=== PATIENT | male | born 1965 | race American Indian/Alaskan Native ===

== ENCOUNTER 2017-05-06 19:54 | Emergency (ER) | payer OTHER ==
[2017-05-06] MEDS ORDERED: ZOFRAN IV ONE (20:05)
[2017-05-06] MEDS ORDERED: MORPHINE IV ONE (20:05)
[2017-05-06 20:15] LABS: Basophils # (Auto) 0.1 K/mm3 (0.0-0.1); Basophils % (Auto) 1.1 % (0.0-1.8); Eosinophils # (Auto) 0.1 K/mm3 (0.0-0.4); Hematocrit 41.1 % (35.5-45.6); Hemoglobin 13.7 gm/dl (11.8-15.2); Lymphocytes # (Auto) 2.4 K/mm3 (1.2-5.4); Lymphocytes % (Auto) 31.5 % (13.4-35.0); Mean Corpuscular HGB Conc 33 % (32-34); Mean Corpuscular Hemoglobin 30 pg (28-32); Mean Corpuscular Volume 89 fl (84-94); Monocytes % (Auto) 13.3 % (0.0-7.3); Platelet Count 216 K/mm3 (140-440); Red Blood Count 4.61 M/mm3 (3.65-5.03); Red Cell Distribution Width 14.1 % (13.2-15.2)
--- NOTE | 2017-05-06 20:16 | Emergency Department Report ---
ED General Adult HPI - General Chief complaint: Fall Stated complaint: FELL FROM LADDER Time Seen by Provider: 05/06/17 20:01 Source: patient Mode of arrival: Ambulatory Limitations: No Limitations - History of Present Illness Initial comments: Patient presents to emergency department via private vehicle for a fall from a ladder. Patient states he was approximately 10 feet high when he lost his balance and fell from the ladder. He is not sure if there was loss of consciousness able to recall everything that happened after the fall. Patient complains of a headache, neck pain and hip pain. -: Sudden Location: head, neck, lower extremity Radiation: non-radiation Severity scale (0 -10): 8 Quality: aching Consistency: constant Improves with: none Worsens with: none Associated Symptoms: denies other symptoms Treatments Prior to Arrival: none - Related Data Home Medications Medication Instructions Recorded Confirmed Last Taken Acetaminophen [Tylenol Extra 500 mg PO DAILY 05/06/17 05/06/17 Unknown Strength] Previous Rx's Medication Instructions Recorded Last Taken Type traMADol [Ultram] 50 mg PO Q6HR PRN #24 tablet 05/07/17 Unknown Rx Allergies Allergy/AdvReac Type Severity Reaction Status Date / Time No Known Allergies Allergy Unverified 05/06/17 20:09 ED Review of Systems ROS: Stated complaint: FELL FROM LADDER Other details as noted in HPI Comment: All other systems reviewed and negative Constitutional: denies: chills, fever Eyes: denies: eye pain, eye discharge, vision change ENT: denies: ear pain, throat pain Respiratory: denies: cough, shortness of breath, wheezing Cardiovascular: denies: chest pain, palpitations Endocrine: no symptoms reported Gastrointestinal: denies: abdominal pain, nausea, diarrhea Genitourinary: denies: urgency, dysuria Musculoskeletal: back pain, arthralgia, other (neck and hip pain). denies: joint swelling Skin: denies: rash, lesions Neurological: headache, other (LOC). denies: weakness, paresthesias Psychiatric: denies: anxiety, depression Hematological/Lymphatic: denies: easy bleeding, easy bruising ED Past Medical Hx - Past Medical History Previous Medical History?: No - Surgical History Past Surgical History?: No - Social History Smoking Status: Never Smoker - Medications Home Medications: Home Medications Medication Instructions Recorded Confirmed Last Taken Type Acetaminophen [Tylenol Extra 500 mg PO DAILY 05/06/17 05/06/17 Unknown History Strength] traMADol [Ultram] 50 mg PO Q6HR PRN #24 tablet 05/07/17 Unknown Rx ED Physical Exam - General Limitations: No Limitations General appearance: alert, in no apparent distress - Head Head exam: Present: atraumatic, normocephalic - Eye Eye exam: Present: normal appearance - ENT ENT exam: Present: mucous membranes moist - Neck Neck exam: Present: other (tenderness to palpation of midline C-spine) - Respiratory Respiratory exam: Present: normal lung sounds bilaterally. Absent: respiratory distress - Cardiovascular Cardiovascular Exam: Present: regular rate, normal rhythm. Absent: systolic murmur, diastolic murmur, rubs, gallop - GI/Abdominal GI/Abdominal exam: Present: soft, normal bowel sounds - Rectal Rectal exam: Present: deferred - Extremities Exam Extremities exam: Present: other (tender to palpation of left hip) - Back Exam Back exam: Present: normal inspection - Neurological Exam Neurological exam: Present: alert, oriented X3 - Psychiatric Psychiatric exam: Present: normal affect, normal mood - Skin Skin exam: Present: warm, dry, intact, normal color. Absent: rash ED Course Vital Signs 05/06/17 05/06/17 05/06/17 20:00 20:18 20:20 Temperature 98.6 F Pulse Rate 99 H 85 Respiratory 16 22 17 Rate Blood Pressure 148/88 126/74 Blood Pressure [Right] O2 Sat by Pulse 100 94 Oximetry 05/06/17 05/06/17 05/06/17 20:30 20:46 20:50 Temperature Pulse Rate 79 67 Respiratory 20 13 15 Rate Blood Pressure 126/74 127/71 Blood Pressure [Right] O2 Sat by Pulse 95 98 Oximetry 05/06/17 05/06/17 05/06/17 21:00 21:06 21:10 Temperature Pulse Rate 74 91 H Respiratory 18 17 Rate Blood Pressure 139/79 Blood Pressure [Right] O2 Sat by Pulse 94 Oximetry 05/06/17 05/06/17 05/06/17 21:15 22:01 22:05 Temperature Pulse Rate 72 63 Respiratory 18 16 Rate Blood Pressure 143/79 138/84 Blood Pressure 138/84 [Right] O2 Sat by Pulse 95 96 97 Oximetry 05/06/17 05/06/17 22:16 23:12 Temperature Pulse Rate 75 Respiratory 17 Rate Blood Pressure 138/84 143/79 Blood Pressure [Right] O2 Sat by Pulse 93 98 Oximetry ED Medical Decision Making - Lab Data Result diagrams: 05/06/17 20:07 05/06/17 20:07 - Medical Decision Making Discussed results with the patient Critical care attestation.: If time is entered above; I have spent that time in minutes in the direct care of this critically ill patient, excluding procedure time. ED Disposition Clinical Impression: Accidental fall from ladder, Hip pain, Neck pain Disposition: DC- TO HOME OR SELFCARE Is pt being admited?: No Does the pt Need Aspirin: No Condition: Stable Prescriptions: traMADol [Ultram] 50 mg PO Q6HR PRN #24 tablet PRN Reason: Pain
[2017-05-06 20:34] LABS: Alanine Aminotransferase 16 units/L (7-56); Albumin 4.5 g/dL (3.9-5); BUN/Creatinine Ratio 10; Blood Urea Nitrogen 9 mg/dL (9-20); Calcium 9.1 mg/dL (8.4-10.2); Hemolysis Index 10
--- NOTE | 2017-05-06 21:53 | Cat Scan Report ---
FINAL REPORT PROCEDURE: CT head without contrast. TECHNIQUE: Computerized tomography of the head was performed without contrast material. HISTORY: Head trauma. COMPARISON: No prior studies are available for comparison. FINDINGS: The ventricles are normal in size. The fragoso matter and white matter appear normal. There are no mass lesions. There is no intracranial hemorrhage. The calvarium appears intact. The mastoid air cells and paranasal sinuses are clear as far as visualized. IMPRESSION: Normal study.
--- NOTE | 2017-05-06 22:22 | Cat Scan Report ---
FINAL REPORT PROCEDURE: CT cervical spine without contrast. TECHNIQUE: Computerized tomography of the cervical spine was performed from the skull base to T1 without contrast material. HISTORY: Neck trauma. COMPARISON: No prior studies are available for comparison. FINDINGS: The cervical vertebrae have normal height and alignment. There are no fractures. There is no subluxation. The disc spaces appear satisfactory. The spinal canal is widely patent. The facet joints appear satisfactory. The neural foramina are widely patent. IMPRESSION: No evidence of acute cervical spine injury.
--- NOTE | 2017-05-06 23:43 | XRay Report ---
FINAL REPORT PROCEDURE: Pelvis. TECHNIQUE: AP views. HISTORY: Fell from ladder, hip pain. COMPARISON: No prior studies are available for comparison. FINDINGS: The pelvis appears intact without fracture. The sacroiliac joints and symphysis pubis appear normal. There is deformity of the left superior and inferior pubic rami consistent with old fractures. There is internal fixation hardware present in the proximal left femur. There are sclerotic densities in the left femoral head. Some of this could represent previous aseptic necrosis. The soft tissues are unremarkable. IMPRESSION: No evidence of an acute fracture.
--- NOTE | 2017-05-06 23:45 | XRay Report ---
FINAL REPORT PROCEDURE: Left ribs. Chest. TECHNIQUE: AP and oblique views of the left ribs. Single frontal chest. HISTORY: Fell from ladder, rib pain. COMPARISON: No prior studies are available for comparison. FINDINGS: Left ribs: The left-sided ribs appear intact without fracture or other osseous abnormality. There is no evidence of a pneumothorax. Chest: The heart and mediastinum appear normal. The lungs are grossly clear. There are no pleural effusions. The soft tissues and regional skeleton are unremarkable. IMPRESSION: No evidence of acute cardiopulmonary disease. No evidence of a left rib fracture.
[2017-05-07 00:19] VITALS: BP 132/72
== END 2017-05-07 00:19 | disposition home or self-care (01) ==
LOC: ED 19:54
DX: M54.2 Cervicalgia (principal); M25.552 Pain in left hip; W11.XXXA Fall on and from ladder, initial encounter; Y93.89 Activity, other specified; Y92.89 Other specified places as the place of occurrence of the external cause; Y99.8 Other external cause status
CPT/HCPCS: 36415; 70450; 71100; 72125; 72170; 80053; 85025; 96374; 96375; 99284; J2270; J2405